=== PATIENT | male | born 1945 | race Caucasian/White ===

== ENCOUNTER 2025-05-29 11:12 | Outpatient (REF) | payer MEDICARE, SELFPAY ==
--- OUTSIDE RECORDS SUMMARY | 2025-05-29 15:06 | XMS_ITS ---
Author Name [facility] Organization Unknown Care Team Organization Name Specialty Phone Email Start Date End Da te [facility] 12/10/2022 02/20/2024 [facility] 05/11/2022 02/20/2024
[2025-05-29 17:48] LABS: MANUAL DIFF FLAG NO
[2025-05-29 18:05] LABS: NRBC Abs Auto 0.000 X10*3/uL (0.0-0.012); NRBC Pct Auto 0.0 /100WBC (0.0-0.2); SCAN SMEAR FLAG 1
[2025-05-29 18:07] LABS: Hematocrit 33.5 % (42.0-52.0); Hemoglobin 9.8 g/dl (14.0-18.0); Imm Gran Abs Auto 0.04 X10*3/uL (0.00-0.03); Imm Gran Pct Auto 0.5 % (0.0-0.4); Lymphocytes Absolute Auto 0.8 X10*3/uL (1.2-4.9); Mean Corpuscular HGB Conc 29.3 g/dl (31.0-36.0); Mean Corpuscular Hemoglobin 20.5 pg (27.0-33.0); Mean Corpuscular Volume 70.2 fL (80.0-98.0); Platelet Count 212 X10*3/uL (160-400); Red Blood Count 4.77 X10*6/uL (4.60-5.80); White Blood Count 7.6 X10*3/uL (4.8-10.8)
[2025-05-29 18:15] LABS: PLT ABN DIST 1
[2025-05-29 18:34] LABS: Alanine Aminotransferase 26 U/L (0-40); Albumin Level 4.4 g/dL (3.5-5.0); Alkaline Phosphatase 87 U/L (39-117); Anion Gap 12 (12-20); Aspartate Amino Transferase 32 U/L (5-37); Blood Urea Nitrogen 16 mg/dL (9-16); Calcium 9.7 mg/dL (8.4-10.2); Carbon Dioxide 27 mmol/L (22-29); Chloride 111 mmol/L (96-108); Estimated Glomerular Filt Rate 41; Potassium 4.8 mmol/L (3.3-5.1); Sodium 145 mmol/L (135-145); Total Protein 6.6 g/dL (6.5-8.0)
[2025-05-29 18:44] LABS: Erythrocyte Sedimentation Rate 14 MM/HR (0-15)
[2025-05-29 19:02] LABS: Folate 3.8 ng/mL (> or = 4.0); Vitamin B12 337 pg/mL (200-900)
== END 2025-05-29 11:13 | disposition home or self-care (01) ==
LOC: HO.HKASLDS 11:12
PROVIDERS: PCP Internal Medicine; Visit Provider Psychiatry & Neurology Neurology
DX: G31.84 Mild cognitive impairment of uncertain or unknown etiology (principal)
CPT/HCPCS: 36415; 80053; 82607; 82746; 83090; 84443; 85025; 85652; 99202

== ENCOUNTER 2025-05-29 11:12 | Outpatient (AMB) | payer MEDICARE, SELFPAY ==
--- NOTE | 2025-05-29 11:16 | A.OFFVIS_ITS ---
Vital Signs 05/29/25 11:19 Height 5 ft 4 in Weight 151 lb BMI 25.9 BP 118/76 Blood Pressure Location Rt brachial Position Sitting Pulse 64 Pulse Source Pulse Oximeter Pulse Oximetry (%) 97 Oxygen Delivery Method Room Air Intake Visit Reasons: INP - Mild Cognitive Impairment Intake Note: Mild cognitive impairment Professional Nursing Tutor Required: No Accompanied by: Spouse Allergies No Known Allergies Allergy (Verified 05/29/25 11:16) Medication List - Last Reconciled 05/29/25 by Erika Avila MD amlodipine (Norvasc) 5 mg PO DAILY atorvastatin (Lipitor) 20 mg PO BEDTIME bicalutamide (Casodex) 50 mg PO DAILY citalopram (Celexa) 10 mg PO DAILY donepezil (Aricept) 10 mg PO BEDTIME gabapentin (Neurontin) 300 mg PO BEDTIME leuprolide acetate (3 month) 22.5 mg IM [id number] tiotropium bromide 2.5 mcg/actuation (Spiriva Respimat) 2 puffs inhalation DAILY umeclidinium 62.5 mcg/actuation (Incruse Ellipta) 1 inh inhalation DAILY HPI Comments Details: 79y/o Right handed male comes for evaluation of cognitive impairment. He is accompanied by his . He reports short term recall issues for a few years now. He forgets conversations, appointments , repeats himself, has trouble finding words, forgets names , misplaces things at home he is good with medications He does not drive.He is not confident about his driving skills. No executive dysfunction his takes care of banking etc He has COPD and has 60 Pack years. 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 Social History Comment: no Patient Tobacco Use Status: Current everyday Tobacco user e-Cigarette/Vaping Use: Never Used Physical Exam Vital Signs: Last Vital Signs Pulse 64 05/29/25 11:19 BP 118/76 05/29/25 11:19 Pulse Ox 97 05/29/25 11:19 Oxygen Delivery Method Room Air 05/29/25 11:19 BMI result Body Mass Index 25.9 Const General: cooperative, healthy appearing, comfortable and no acute distress Nutritional Appearance: average body habitus Orientation/consciousness: patient oriented x3 Eyes Pupils: Equal, round and reactive pupils present Resp Effort & Inspection: able to speak in complete sentences Neuro General: patient oriented x3, gait normal, tone normal, moves all extremities and no focal motor deficits Cranial nerves: Yes Facial sensation intact/muscles of mastication intact, Yes Equal, round and reactive pupils present, Yes Bilaterally intact EOM present, Yes Nystagmus not present, Yes Normal facial strength present and Yes Midline tongue present Cognition (Neuro): normal cognition Gait exam (Neuro): Normal gait present Motor exam (neuro): 5/5 motor strength present throughout and Normal motor muscle tone present throughout Deep tendon reflexes (DTR's): Right triceps reflex intensity grade: 1+, Left triceps reflex intensity grade: 1+, Rt Biceps (C5, C6): 1+, Left biceps reflex intensity grade: 1+, Right brachioradialis reflex intensity grade: 1+, Left brachioradialis reflex intensity grade: 1+, Right patellar reflex intensity grade: 1+ and Left patellar reflex intensity grade: 1+ Coordination: [id number] test normal Orientation What is the (year) (season) (date) (day) (month)?: year, season, date, day and month Where are we (state) (county) (town or city) (hospital) (floor)?: state, county, town or city, hospital/clinic and floor Registration Name of 3 unrelated objects clearly and slowly, then ask patient to repeat all 3 of them. (1st repeat determines score. Make sure they can repeat all three): object 1, object 2 and object 3 Attention & Calculation (CHOOSE ONE) Spell WORLD backwards (DLROW): 3 letters Recall Ask patient to repeat the 3 items from question #3.: object 1, object 2 and object 3 Language Show patient a wristwatch & ask what it is. Repeat for pencil.: watch and pencil Ask the patient to repeat the phrase 'No ifs, ands, or buts' after you.: correct Ask the patient to 'take a piece of paper with their right hand' 'fold paper in half' 'place paper on floor': take paper in right hand and fold paper in half Score Score: 24 Assessment & Plan Assessment & Plan (1) Mild cognitive impairment: Comment: Likely vascular Code(s): G31.84 - Mild cognitive impairment of uncertain or unknown etiology Category: Medical Plan F/u Pulmonary to discuss supplemental O2 use MRI Brain to r/o structural causes Labs to r/o reversible causes CBC,CMP Vit B 12 TSH ESR TAMIKA Orders: Orders MR head/brain wo con Today G31.84 - Mild cognitive impairment of uncertain or unknown etiology Homocysteine Today G31.84 - Mild cognitive impairment of uncertain or unknown etiology Erythrocyte Sedimentation Rate Today G31.84 - Mild cognitive impairment of uncertain or unknown etiology Comprehensive Met. Panel Today G31.84 - Mild cognitive impairment of uncertain or unknown etiology Complete Blood Count Auto Diff Today G31.84 - Mild cognitive impairment of uncertain or unknown etiology TSH reflex Free T4 Today G31.84 - Mild cognitive impairment of uncertain or unknown etiology Vitamin B12 and Folate Today G31.84 - Mild cognitive impairment of uncertain or unknown etiology Coding Level of Care Code New Pt Level 4 (56857) Complex visit Add On G2211 Diagnoses Mild cognitive impairment G31.84
[2025-05-29 11:19] VITALS: BP 118/76; PULSE 64; O2SAT 97; BMI 25.9
--- OUTSIDE RECORDS SUMMARY | 2025-05-29 13:56 | XMS_ITS | Clinical Summary ---
Author Organization [facility] Address [address] [place] [address] Care Team Providers Care Sanitation Truck Cleaner Name Role Phone Don Lee MD Primary Care Provider [phone] Allergies No known active allergies Medications Medication Sig Dispensed Refills Start Date End Date Status donepezil (ARICEPT) 10 MG tablet Take 1 tablet (10 mg total) by mouth every night at bedtime. 0 Active guaiFENesin-codeine (ROBITUSSIN-AC) 100-10 MG/5ML syrup Take 5 mL by mouth 3 (three) times a day as needed for cough. 0 Active amLODIPine (NORVASC) tablet 5 mg Take 1 tablet (5 mg total) by mouth daily. 0 Active Melatonin 5 MG TABS Take by mouth every night at bedtime. 0 Active Cholecalciferol (Vitamin D) 50 MCG (2000 UT) CAPS Take by mouth daily. 0 Active albuterol 108 (90 Base) MCG/ACT inhaler Inhale 2 puffs into the lungs every 6 (six) hours as needed for wheezing. 0 Active atorvastatin (LIPITOR) tablet 20 mg Take 1 tablet (20 mg total) by mouth daily. 0 Active fluticasone-salmetero l 250-50 MCG/ACT AEPB Inhale into the lungs. 0 Active Tiotropium [place] Monohydrate 2.5 MCG/ACT AERS Inhale into the lungs. 0 Active leuprolide (Eligard) 22.5 MG KIT 3 Month injection Inject 22.5 mg under the skin every 3 (three) months. 0 Active citalopram (CeleXA) 10 MG tablet Take 1 tablet (10 mg total) by mouth daily. 0 Active bicalutamide (CASODEX) 50 MG tablet Take 1 tablet (50 mg total) by mouth daily 30 tablet 11 09/08/2023 Active gabapentin (NEURONTIN) 300 MG capsule TAKE 1 CAPSULE BY MOUTH ONCE DAILY AT NIGHT AT BEDTIME FOR HOT FLASHES 30 capsule 5 04/18/2024 Active Active Problems Problem Noted Date Diagnosed Date Prostate cancer 04/16/2023 Non-small cell cancer of left lung 04/16/2023 Family History Medical History Relation Name Comments Lymphoma Mother Relation Name Status Comments Father Mother Social History Tobacco Use Types Packs/Day Years Used Date Smoking Tobacco: Every Day Cigarettes 1 60 Smokeless Tobacco: Never Tobacco Cessation:Ready to Q uit: Not Asked; Counseling Given: Not Answered Alcohol Use Standard Drinks/Week Comments Not Currently 0 (1 standard drink = 0.6 oz pur e alcohol) Sex and Gender Information Value Date Recorded Sex Assigned at Not on file Gender Identity Not on file Sexual Orientation Not on file Job Start Date Occupation Industry Not on file Not on file Not on file Last Filed Vital Signs Vital Sign Reading Time Taken Comments Blood Pressure 127/49 03/09/2024 11:28 AM EDT Pulse 60 03/09/2024 11:28 AM EDT Temperature 36.3 C (97.4 F) 03/09/2024 11:28 AM EDT Respiratory Rate - - Oxygen Saturation 97% 03/09/2024 11:28 AM EDT Inhaled Oxygen Concentration - - Weight 68.9 kg (152 lb) 03/09/2024 11:28 AM EDT Height 162.6 cm (5' 4 ) 03/09/2024 11:28 AM EDT Body Mass Index 26.09 03/09/2024 11:28 AM EDT Plan of Treatment Health Maintenance Due Date Last Done Comments Hepatitis C Screening 1945 Lung Cancer Screening (Low Dose CT) 1945 Depression Screening 1957 Preventative Health Evaluation 1963 DTap / Tdap / Td (1 - Tdap) 1964 Shingrix-Zoster Vaccine (1 of 2) 1964 Fall Risk Assessment 2010 RSV Adult > 60+ Yrs or (1 - 1-dose 75+ series) 2020 COVID-19 Vaccine (3 - Pfizer risk series) 09/29/2020 09/01/2020, 08/11/2020 Influenza Vaccine (#1) 2025 3, 05/20/2022, 09/17/2021, Additional history exists Pneumococcal Vaccine Completed 04/18/2020, 12/02/2017, 05/13/2017, Additional history exists Hepatitis B Vaccines Aged Out No long er eligible based on patient's age to complete this topic RSV Ped < 20 months Aged Out No longe r eligible based on patient's age to complete this topic Care Teams Sanitation Truck Cleaner Relationship Specialty Start Date End Date oDn Lee MD [address] [place] [id number] PCP - General Internal Medicine 02/25/23
--- OUTSIDE RECORDS SUMMARY | 2025-05-29 13:57 | XMS_ITS | Clinical Summary ---
Author Organization [place] [address] [address] Formerly [facility], [facility] Building Address [address] [place] [phone] Phone Care Team Providers Care Adjunct Art History Instructor Name Role Phone Apple Greenfield MD Primary Care Provider [phone] Allergies No known active allergies Medications cholecalciferol (VITAMIN D-3) 50 mcg (2,000 unit) capsule Take by mouth daily. Active leuprolide (Eligard, 3 month,) 22.5 mg syringe Inject 22.5 mg under the skin every 3 (three) months. Active gabapentin (NEURONTIN) 300 mg capsule Take 1 capsule (300 mg total) by mouth at bedtime. 90 capsule 3 5 Active bicalutamide (CASODEX) 50 mg tablet Take 1 tablet (50 mg total) by mouth 1 (one) time each day Take at the same time every day. 90 tablet 3 5 Active Incruse Ellipta 62.5 mcg/actuation inhalation Inhale 1 puff by mouth 1 (one) time each day. 5 Active citalopram (CeleXA) 20 mg tablet Take 1 tablet (20 mg total) by mouth 1 (one) time each day. 30 tablet 11 5 01/09/20 26 Active donepeziL (ARICEPT) 10 mg tablet TAKE 1 TABLET BY MOUTH AT BEDTIME 90 tablet 1 5 Active atorvastatin (LIPITOR) 20 mg tablet Take 1 tablet by mouth once daily 90 tablet 1 5 Active amLODIPine (NORVASC) 5 mg tablet Take 1 tablet by mouth once daily 90 tablet 1 5 Active fluticasone-mando meterol (ADVAIR DISKUS) 250-50 mcg/dose diskus inhaler Inhale 1 puff by mouth 2 (two) times a day. Rinse mouth with water after use to reduce aftertaste and incidence of candidiasis. Do not swallow. 3 each 5 Active fluticasone-ume clidinium-vilan terol (Trelegy Ellipta) 200-62.5-25 mcg inhaler Inhale 1 puff (200 mcg total) by mouth 1 (one) time each day. Rinse mouth with water after use to reduce aftertaste and incidence of candidiasis. Do not swallow. 1 each 5 03/20/20 26 Active Active Problems Problem Noted Date Diagnosed Date Bilateral hearing loss 08/21/2024 Overview (08/21/2024): Aug 02, 2024 Entered By: AYUSH [place] Comment: hearing aids Current smoker 08/21/2024 Overview (08/21/2024): Aug 02, 2024 Entered By: AYUSH [place] Comment: 1ppd since age 10 Type 2 diabetes mellitus wit hout complications ([facility] V24, [facility] V28) 08/21/2024 Unspecified abnormalities of gait and mobility 0 08/21/2024 Malignant neoplasm of prostate ([facility] V24, [facility] V28) 04/16/2023 Non-small cell cancer of lef t lung ([facility] V24, [facility] V28) 12/08/2022 Assessment & Plan (12/27/2024 12:58 PM EDT): Preferred home care has been placed for PT, OT, to prevent fall risk. He will continue follow-up with his oncologist. Orders: Ambulatory referral to Home Health; Future Assessment & Plan (08/24/2024 2:36 PM EST): He has upcoming appointment scheduled with his radiation oncologist and oncologist. Primary cancer of left upper lobe of lung ([facility] V24, [facility] V28) 12/02/2022 Overview (08/21/2024): Last Assessment & Plan: 77-year-old male current smoker with a small but now confirmed clinical stage I lung cancer with quite poor pulmonary function testing. He tolerated his procedure quite well and I went over the new diagnosis of non-small cell lung cancer from the navigational bronchoscopy with biopsy. We also went over his pulmonary function testing which are quite poor and with a small intraparenchymal nodule we discussed the options of radiation probably stereotactic versus surgery which would require a lobectomy and a VQ scan prior. He does continue to smoke and I did advise that surgery would be quite risky in him even with a favorable VQ scan as his FEV1 is less than 40% already. His and him tell me that he has an appointment with radiation oncology on December 14 which I think he should keep and probably proceed with stereotactic radiation if that is what they recommend. All questions were answered. Depressed mood 05/20/2022 Assessment & Plan (08/24/2024 2:36 PM EST): Continue citalopram 10 mg daily for now. Pulmonary nodule 04/26/2022 Overview (08/21/2024): Per OV notes with Dr. Cao on 04/26/22: patient has a slowly enlarging spiculated nodule measuring 9 mm in the left upper lobe. This is a presumed clinical stage I lung cancer until proven otherwise...Options we discussed were for continued observation which at this point would be a 6-month follow-up CT scan of the chest versus a navigational bronchoscopy with biopsy. I discussed the risks and benefits of each of these options in detail which he seemed to understand quite well. Last Assessment & Plan: Patient is a 77-year-old male longtime and current smoker part of the lung cancer screening program was a slowly enlarging spiculated nodule measuring 10 mm in the left upper lobe. This is a presumed clinical stage I lung cancer until proven otherwise. We discussed the diagnosis, staging and treatment of lung cancer which she seemed to understand. Options we discussed were for continued observation which at this point would be increasing to 12-month intervals versus a navigational bronchoscopy with biopsy to be performed by thoracic surgeon Dr. Amy Cao. We discussed the risks and benefits of navigational bronchoscopy which include postprocedural hemoptysis as well as hematoma or pneumothorax which would require hospitalization. Patient is not a surgical candidate as he also has significant COPD with FEV1 of less than 40%. Patient would like to move forward with a navigational bronchoscopy and biopsy. Syncope 10/03/2020 Mild cognitive impairment 04/18/2020 Overview (08/21/2024): Aug 02, 2024 Entered By: AYUSH [place] Comment: poor STM Assessment & Plan (12/27/2024 12:58 PM EDT): I have placed referral to neurology for further evaluation of his cognitive impairment. Orders: Ambulatory referral to Neurology; Future Ectatic abdominal aorta ([facility] V24) 10/30/2019 Overview (08/21/2024): CT abdomen (10/2019) done at [facility] visit and was found to have a 2.8 cm ectatic abdominal aorta. Stress incontinence 04/03/2019 Hemorrhoid 04/25/2018 Asthma 05/13/2017 Thal trait 05/13/2017 Cataract 12/27/2016 CKD (chronic kidney disease) stage 3, GFR 30-59 ml/min ([facility]/HCC V24, [facility]/HCC V28) 12/27/2016 Chronic obstructive pulmonar y disease, unspecified ([facility] V24, [facility] V28) 12/27/2016 Overview (08/21/2024): Aug 02, 2024 Entered By: AYUSH [place] Comment: advanced disease Aug 02, 2024 Entered By: AYUSH [place] Comment: O2 PRN Assessment & Plan (12/27/2024 12:58 PM EDT): Continue Incruse Ellipta, Spiriva. Referral to pulmonology placed. Strongly advised him to quit smoking but he does not want to. Orders: Ambulatory referral to Pulmonology; Future Ambulatory referral to Home Health; Future Assessment & Plan (08/24/2024 2:36 PM EST): Continue carvedilol Advair, Incruse Ellipta, albuterol until he runs out of the Incruse Ellipta. After that he will be switched to Spiriva instead of the i Incruse Ellipta. Diverticulosis 12/27/2016 Eczema 12/27/2016 Hepatic cyst 12/27/2016 HTN (hypertension) 12/27/2016 Assessment & Plan (12/27/2024 12:58 PM EDT): Follow low-sodium diet. Continue amlodipine. Blood pressure okay. Assessment & Plan (08/24/2024 2:36 PM EST): Follow low-sodium diet. Blood pressure is okay. Continue amlodipine. Hyperlipidemia 12/27/2016 Assessment & Plan (12/27/2024 12:58 PM EDT): Follow low cholesterol diet. Continue atorvastatin. Will check lipid panel. Orders: Lipid panel with reflex to direct LDL; Future Assessment & Plan (08/24/2024 2:36 PM EST): Follow low-cholesterol diet. Continue atorvastatin. His LFTs are normal. Lipid panel showed elevated triglycerides. Advised him to take paeg-[id number] omega-3 once a day with lunch. Iron deficiency anemia 12/27/2016 Prediabetes 12/27/2016 Overview (08/21/2024): HGBA1C 6.3 on 09/06/2016 Assessment & Plan (12/27/2024 12:58 PM EDT): We will monitor A1c levels. Is now been in the prediabetic range. Diabetic diet discussed. Orders: Hemoglobin A1c; Future Assessment & Plan (08/24/2024 2:36 PM EST): Diabetic diet discussed. 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 Encounters Date Type Department Care Team Description 05/22/2025 4:00 PM EST Office Visit Nephrology [facility] [address] [place] [phone] Taqueria Ndiaye MD Stage 3b chronic kidney disease ([facility]/HCC V24, CMS/HCC V28) (Primary Dx); Hypertension, unspecified type 04/11/2025 11:30 AM EDT Office Visit [facility] Hematology Oncology [address] [place] [phone] Ashok Dailey MD Non-small cell cancer of left lung (CMS/HCC V24, CMS/HCC V28) (Primary Dx); Primary cancer of left upper lobe of lung (CMS/HCC V24, CMS/HCC V28); Malignant neoplasm of prostate (CMS/HCC V24, CMS/HCC V28) 03/20/2025 11:30 AM EDT Office Visit Pulmonology [facility] [address] [facility] [address] [place] [phone] Joe Fang MD Malignant neoplasm of lung, unspecified laterality, unspecified part of lung (CMS/HCC V24, CMS/HCC V28) (Primary Dx); Chronic obstructive pulmonary disease, unspecified COPD type (CMS/HCC V24, CMS/HCC V28); Tobacco abuse from Last 3 Months Surgical History Surgery Date Site/Laterality Comments PROSTATE SURGERY PROCEDURE:PROSTATE SURGERY PROSTATE SURGERY PROCEDURE: HISTORICAL PROSTATE SURGERY; COMMENT: prostate ca OTHER SURGICAL HISTORY removed small lump on back of neck, benign VASECTOMY Medical History Medical History Date Comments Prostate cancer ([facility]/HCC V24 , [facility]/HCC V28) DX:Prostate cancer (HCC) Lung cancer (CMS/HCC V24, [facility]/HCC V28) DX:Lung cancer (HCC) Hypertension DX:Hypertension Anemia DX:Anemia Psoriasis DX:Psoriasis CKD (chronic kidney disease) DX: CKD (chronic kidney disease) COPD (chronic obstructive pu lmonary disease) (CMS/HCC V24, CMS/HCC V28) DX:COPD (chronic o bstructive pulmonary disease) (HCC) Prediabetes 12/27/2016 DX:Prediabetes; COMMENT: HGBA1C 6.3 on 09/06/2016 CKD (chronic kidney disease) stage 3, GFR 30-59 ml/min (CMS/HCC V24, CMS/HCC V28) 12/27/2016 DX:CKD (chronic kidney disea se) stage 3, GFR 30-59 ml/min ([facility]) Cataract 12/27/2016 DX:Cataract Diverticulosis 12/27/2016 DX:Diverticulosi s Eczema 12/27/2016 DX:Eczema COPD with chronic bronchitis and emphysema ([facility] V24, [facility] V28) 12/27/2016 DX:COPD with management recruiter master bronchitis and emphysema (HCC) History of prostate cancer 12/27/2016 DX:Hi story of prostate cancer; COMMENT: Urology follows Hepatic cyst 12/27/2016 DX:Hepatic cyst HTN (hypertension) 12/27/2016 DX:HTN (hyper tension) 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 DX:Scrotal varic es Hemorrhoid 04/25/2018 DX:Hemorrhoid Asthma 05/13/2017 DX:Asthma Hyperlipidemia 12/27/2016 DX:Hyperlipidemi a Iron deficiency anemia 12/27/2016 DX:Iron d eficiency anemia Memory loss 09/22/2017 DX:Memory loss Thal trait 05/13/2017 DX:Thal trait Depressed mood 05/20/2022 DX:Depressed moo d Non-small cell cancer of lef t lung ([facility] V24, [facility] V28) 12/08/2022 DX:Non-small cell cancer of left lung (HCC) Prostate cancer ([facility] V24 , [facility] V28) 02/24/2023 DX:Prostate cancer (HCC) Family History Medical History Relation Name Comments Cancer Brother unsure of type No Known Problems Daughter Lymphoma Mother No Known Problems Sister No Known Problems Son Relation Name Status Comments Brother Daughter Alive Father Mother Sister Alive Son Alive x3 Social History Tobacco Use Types Packs/Day Years Used Date Smoking Tobacco: Every Day Cigarettes Smokeless Tobacco: Never Tobacco Cessation:Ready to Q uit: Not Asked; Counseling Given: Not Answered Comments:Smoking 1 pk daily Alcohol Use Standard Drinks/Week Comments No 0 (1 standard drink = 0.6 oz pur e alcohol) Housing Instability Answer Date Recorde d Are you worried that in the next 2 months you may not have stable housing? No 02/14/2025 Food Access & Nutrition Answer Date Rec orded Do you have access to a vari ety of food including fruits and vegetables? Yes 02/14/2025 Health Literacy Answer Date Recorded How often do you need to hav e someone help you when you read instructions, pamphlets, or other written material from your doctor or pharmacy? Never 02/14/2025 Caregiver: How often do you need to have someone help you when you read instructions, pamphlets, or other written material from your doctor or pharmacy? Not on file 02/14/2025 Financial Risk Answer Date Recorded How hard is it for you to pa y for the very basics like food, housing, medical care, and air conditioning / heating? Somewhat hard 02/14/2025 Transportation Answer Date Recorded Has the lack of transportati on kept you from meetings, work, or from getting things needed for daily living? No Has the lack of transportati on kept you from medical appointments or from getting medications? No 02/14/2025 Social Isolation Answer Date Recorded How often do you feel lonely or isolated from th ose around you? Never 02/14/2025 Food Risk Answer Date Recorded Within the past 12 months we worried whether our food would run out before we got money to buy more. Sometimes true 025 Within the past 12 months th e food we bought just didn't last and we didn't have money to get more. Sometimes true 02/14/2025 Dependent Care Answer Date Recorded Do you need help finding or paying for care for your loved ones. For example, child and family therapist or elderly care for an older adult? No 02/14/2025 Education Answer Date Recorded Do you think completing more education or training, like finishing a GED, going to college, or learning a trade, would be helpful for you? No 02/14/2025 Employment and Income Answer Date Recor ded During the last four weeks, have you been actively looking for work? No 02/14/2025 Living Situation Answer Date Recorded What is your living situation? Unrecognized valu e 02/14/2025 Sex and Gender Information Value Date Recorded Sex Assigned at Male 05/15/2025 12:59 PM EST Legal Sex Male 4:20 AM EST Gender Identity Male 05/15/2025 12:59 PM EST Sexual Orientation Not on file Obstetrics History Last Filed Vital Signs Vital Sign Reading Time Taken Comments Blood Pressure 118/57 05/22/2025 3:50 PM EST Pulse 61 05/22/2025 3:50 PM EST Temperature 36.4 C (97.6 F) 04/11/2025 11:17 AM EDT Respiratory Rate 20 03/20/2025 11:40 AM EDT Oxygen Saturation 96% 04/11/2025 11:17 AM EDT Inhaled Oxygen Concentration - - Weight 68.6 kg (151 lb 3.2 oz) 05/22/2025 3:50 P M EST Height 162.6 cm (5' 4 ) 03/20/2025 11:40 AM EDT Body Mass Index 25.95 03/20/2025 11:40 AM EDT Plan of Treatment Upcoming Encounters Date Type Department Care Team (Late st Contact Info) Description 07/02/2025 10:30 AM EST Office Visit Internal Medicine - [address] [phone] Rekha Jennings NP [address] [place] [phone] 11:30 AM EST Appointment [facility] CT Scan [address] [place] [phone] 07/12/2025 11:30 AM EST Office Visit [facility] Hematology Oncology [address] [place] [phone] Ashok Dailey MD [address] [place] [phone] 07/24/2025 1:00 PM EST Appointment [facility] Radiation Oncology [address] [place] [phone] Jessica Godoy NP [address] [place] [address] 09/23/2025 1:15 PM EDT Office Visit Pulmonology - [place] [address] [facility] [address] [place] [phone] Joe Fang MD [address] [place] [phone] 10/22/2025 2:30 PM EDT Office Visit Internal Medicine - [address], [place] [phone] Apple Greenfield MD [address] [place], [place] 10/30/2025 1:30 PM EDT Office Visit Nephrology [place] [id number] [place] [phone] Taqueria Ndiaye MD [address] [place] [phone] Health Maintenance Due Date Last Done Comments Diabetes: Annual Foot Exam 1955 Diabetes: Annual Retina Eye Exam 1955 DTaP,Tdap,and Td Vaccines (1 - Tdap) 1964 Zoster Vaccines (1 of 2) 1964 Hepatitis C Screening 06/12/2022 Lung Cancer Screening (Low Dose CT) 01/05/2023 01/05/2022, 12/30/2020 Diabetes: Annual Urine Albumin-Creatinine Ratio (uACR) 04/11/2024 COVID-19 Vaccine ( season) 2025 08/02/2024, 09/01/2020, 08/11/2020 Influenza Vaccine (#1) 2025 , 07/04/2023, 03/25/2023, Additional history exists Diabetes: Blood Sugar Control Test (HGBA1C) 06/29/2025 12/28/2024, 05/08/2024, 12/21/2023 Falls Risk Assessment 02/14/2026 02/14/2025 Medicare Annual Wellness Visit 02/14/2026 02/14/2025 Social Influencers of Health Screening 02/14/2026 02/14/2025 Diabetes: Annual GFR (Glomerular Filtration Rate) 04/08/2026 04/08/2025, 03/19/2025 Hypertension/CHF/CAD Annual BMP Blood Test 04/08/2026 04/08/2025, 03/19/2025 Cholesterol Screening (Lipid Panel) 12/28/2029 12/28/2024, 05/08/2024 Pneumococcal Vaccine: 50+ Years Completed 04/18/2020, 12/02/2017, 05/13/2017, Additional history exists RSV Immunization Adult Patients Completed 08/02/2024 Depression Screening Completed 02/14/2025 HIB Vaccines Aged Out No longer eligi ble based on patient's age to complete this topic HPV Vaccines Aged Out No longer eligi ble based on patient's age to complete this topic Hepatitis A Vaccines Aged Out No long er eligible based on patient's age to complete this topic Hepatitis B Vaccines Aged Out No long er eligible based on patient's age to complete this topic IPV Vaccines Aged Out No longer eligi ble based on patient's age to complete this topic MMR Vaccines Aged Out No longer eligi ble based on patient's age to complete this topic Meningococcal ACWY Vaccine Aged Out N o longer eligible based on patient's age to complete this topic Meningococcal B Vaccine Aged Out No l onger eligible based on patient's age to complete this topic RSV Immunization Patients Under 20 months Aged Out No longer eligible based on patient's age to complete this topic Varicella Vaccines Aged Out No longer eligible based on patient's age to complete this topic Procedures Procedure Name Priority Date/Time Associated Diagnosis Comments CBC WITH AUTO DIFFERENTIAL Routine 04/08/2025 12:00 PM EDT Malignant neoplasm of prostate ([facility] V24, [facility] V28) PROSTATE SPECIFIC ANTIGEN DIAGNOSTIC Routine 04/08/2025 12:00 PM EDT Malignant neoplasm of prostate ([facility] V24, [facility]/HCC V28) COMPREHENSIVE METABOLIC PANEL Routine 04/08/2025 12:00 PM EDT Malignant neoplasm of prostate ([facility] V24, CMS/HCC V28) CBC AND DIFFERENTIAL Routine 04/08/2025 12:00 PM EDT Malignant neoplasm of prostate ([facility]/HCC V24, [facility]/HCC V28) BUN Routine 03/19/2025 1:45 PM EDT Stage 3a chronic kidney disease (CMS/HCC V24, CMS/HCC V28) Hypertension, unspecified type ELECTROLYTE PANEL Routine 03/19/2025 1:4 5 PM EDT Stage 3a chronic kidney disease (CMS/HCC V24, CMS/HCC V28) Hypertension, unspecified type PROTEIN AND CREATININE WITH RATIO, URINE Routine 03/19/2025 1:45 PM EDT Stage 3a chronic kidney disease (CMS/HCC V24, CMS/HCC V28) Hypertension, unspecified type CREATININE, SERUM Routine 03/19/2025 1:4 5 PM EDT Stage 3a chronic kidney disease (CMS/HCC V24, CMS/HCC V28) Hypertension, unspecified type HEMOGLOBIN A1C Routine 12/28/2024 11:06 AM EDT Prediabetes LIPID PANEL WITH REFLEX TO DIRECT LDL Routine 12/28/2024 11:06 AM EDT Hyperlipidemia, unspecified hyperlipidemia type CT LUNG SCREENING LOW DOSE Routine 01/05/2022 4:25 PM EDT Personal history of nicotine dependence from Last 3 Months or Most Recently Relevant to Health Maintenance Results * Prostate specific antigen diagnostic (04/08/2025 12:00 PM EDT) PSA <0.06 0.00 - 4.00 ng/mL LAB CHEMISTRY METHOD 04/08/2025 3:19 PM EDT [facility] Blood Venous blood specimen / Unknown Venipuncture / Unknown 04/08/2025 12:00 PM EDT 04/08/2025 1:33 PM EDT Narrative [facility] - 04/08/2025 3:19 PM EDT The Siemens Advia Centaur Chemiluminescent Immunoassay is used. Results obtained with different assay methods or kits cannot be used interchangeably. Results cannot be interpreted as absolute evidence of the presence or absence of malignant disease. us Ashok Dailey MD LAB BLOOD ORDERABLES Final Result [facility] [address] [place] [address], * (ABNORMAL) CBC auto differential (04/08/2025 12:00 PM EDT) [facility] WBC 7.0 4.8 - 10.8 K/mcL LAB HEMETOLOGY METHOD 04/08/2025 1:40 PM EDT [facility] RBC 4.40(L) 4.50 - 5.50 M/mcL LAB HEMETOLOGY METHOD 04/08/2025 1:40 PM EDT [facility] Hemoglobin 8.9(L) 13.5 - 17.5 g/dL LAB HEMETOLOGY METHOD [facility]/08[facility]2025 [facility] Hematocrit 30.1(L) 42.0 - 54.0 % LAB HEMETOLOGY METHOD 04/08/2025 1:40 PM [facility] MCV 68.7(L) 79.0 - 98.0 FL LAB HEMETOLOGY METHOD 04/08/2025 1:40 PM [facility] MCH 20.3(L) 27.0 - 32.0 pcg LAB HEMETOLOGY METHOD 04/08/2025 1:40 PM [facility] MCHC 29.6(L) 32.0 - 37.0 g/dL LAB HEMETOLOGY METHOD 04/08/2025 1:40 [facility] RDW 15.7(H) 11.0 - 15.0 % LAB HEMETOLOGY METHOD 04/08/2025 1:40 PM EDT [facility] Platelets 297 130 - 400 K/mcL LAB HEMETOLOGY METHOD 04/08/2025 1:40 PM [facility] MPV 10.7 7.0 - 11.0 FL LAB HEMETOLOGY METHOD 04/08/2025 1:40 PM [facility] NRBC 0.3 <1.0 % LAB HEMETOLOGY METHOD 04/08/2025 1:40 PM EDT [facility] NRBC Absolute 0.02 <0.10 K/mcL LAB HEMETOLOGY METHOD 04/08/2025 1:40 PM EDT [facility] Neutrophils Relative 67.8 % LAB HEMETOLOGY METHOD 04/08/2025 1:40 PM EDT [facility] Lymphocytes Relative 19.2 % LAB HEMETOLOGY METHOD 04/08/2025 1:40 PM EDT [facility] Monocytes Relative 8.0 % LAB HEMETOLOGY METHOD 04/08/2025 1:40 PM EDT [facility] Eosinophils Relative 3.9 % LAB HEMETOLOGY METHOD 04/08/2025 1:40 [facility] Basophils Relative 0.7 % LAB HEMETOLOGY METHOD 04/08/2025 1:40 PM [facility] Immature Granulocytes Relative 0.4 % LAB HEMETOLOGY METHOD 04/08/2025 1:40 PM [facility] Neutrophils Absolute 4.73 1.50 - 7.00 K/mcL LAB HEMETOLOGY METHOD 04/08/2025 1:40 PM [facility] Lymphocytes Absolute 1.34 1.00 - 5.00 K/mcL LAB HEMETOLOGY METHOD 04/08/2025 1:40 [facility] Monocytes Absolute 0.56 0.20 - 1.00 K/mcL LAB HEMETOLOGY METHOD 04/08/2025 1:40 PM EDT [facility] Eosinophils Absolute 0.27 0.00 - 0.50 K/mcL LAB HEMETOLOGY METHOD 04/08/2025 1:40 [facility] Basophils Absolute 0.05 0.00 - 0.20 K/mcL LAB HEMETOLOGY METHOD 04/08/2025 1:40 PM EDT [facility] Immature Granulocytes Absolute 0.03 0.00 - 0.03 K/mcL LAB HEMETOLOGY METHOD 04/08/2025 1:40 PM EDT [facility] Blood Venous blood specimen / Unknown Venipuncture / Unknown 04/08/2025 12:00 PM EDT 04/08/2025 1:32 PM EDT Ashok Dailey MD LAB BLOOD ORDERABLES Final Result [facility] [address] [place] [address], [place] [phone] * (ABNORMAL) Comprehensive metabolic panel (04/08/2025 12:00 PM EDT) Sodium 141 133 - 145 mmol/L LAB CHEMISTRY METHOD 04/08/2025 2:25 PM [facility] Potassium 4.2 3.5 - 5.5 mmol/L LAB CHEMISTRY METHOD 04/08/2025 2:25 PM [facility] Chloride 108 96 - 110 mmol/L LAB CHEMISTRY METHOD 04/08/2025 2:25 PM [facility] CO2 23 21 - 32 mmol/L LAB CHEMISTRY METHOD 04/08/2025 2:25 PM [facility] Anion Gap 10 3 - 11 LAB CHEMISTRY METHOD 04/08/2025 2:25 PM [facility] Glucose 136(H) 70 - 100 mg/dL LAB CHEMISTRY METHOD 04/08/2025 2:25 PM [facility] BUN 16 5 - 25 mg/dL LAB CHEMISTRY METHOD 04/08/2025 2:25 PM [facility] Creatinine 1.69(H) 0.70 - 1.30 mg/dL LAB CHEMISTRY METHOD 04/08/2025 2:25 PM [facility] eGFR 41(L) >=60 mL/min/1. 73m2 LAB CHEMISTRY METHOD 04/08/2025 2:25 PM EDT [facility] Comment:Calculation based on the Chronic Kidney Disease Epidemiology Collaboration (CKD-EPI) equation refit without adjustment for race. BUN/Creatinine Ratio 9.5 LAB CHEMISTRY METHOD 04/08/2025 2:25 PM EDT [facility] Calcium 9.2 8.5 - 10.5 mg/dL LAB CHEMISTRY METHOD 04/08/2025 2:25 PM T [facility] AST (SGOT) 20 10 - 42 unit/L LAB CHEMISTRY METHOD 04/08/2025 2:25 PM [facility] ALT (SGPT) 25 10 - 60 unit/L LAB CHEMISTRY METHOD 04/08/2025 2:25 PM [facility] Alkaline Phosphatase 84 42 - 121 unit/L LAB CHEMISTRY METHOD 04/08/2025 2:25 PM [facility] Total Protein 6.1 6.0 - 8.0 g/dL LAB CHEMISTRY METHOD 04/08/2025 2:25 PM T [facility] Albumin 3.8 3.2 - 5.0 g/dL LAB CHEMISTRY METHOD 04/08/2025 2:25 PM [facility] Total Bilirubin 0.6 0.0 - 1.4 mg/dL LAB CHEMISTRY METHOD 04/08/2025 2:25 PM [facility] Blood Venous blood specimen / Unknown Venipuncture / Unknown 04/08/2025 12:00 PM EDT 04/08/2025 1:33 PM EDT us Ashok Dailey MD LAB BLOOD ORDERABLES Final Result [facility] [address] [place] [address], * Protein and creatinine with ratio, urine (03/19/2025 1:45 PM EDT) Protein, Urine 52 mg/dL LAB CHEMISTRY METHOD 03/19/2025 5:08 PM EDT [facility] Prot/Creat, Ur 0.18 <=0.20 mg/mg creat LAB CHEMISTRY METHOD 03/19/2025 5:08 PM EDT [facility] Creatinine, Urine 294.0 mg/dL LAB CHEMISTRY METHOD 03/19/2025 5:08 PM EDT [facility] Urine Urine specimen obtained by clean catch procedure / Unknown Non-blood Collection / Unknown 03/19/2025 1:45 PM EDT 03/19/2025 1:45 PM EDT us Taqueria Ndiaye MD LAB URINE ORDERABLES Final Resu lt Performing Organization Address [facility]/ZIP Co de Phone Number [facility] [address] [place] [address], * (ABNORMAL) Creatinine (03/19/2025 1:45 PM EDT) Pathologist [facility] Creatinine 1.61(H) 0.70 - 1.30 mg/dL LAB CHEMISTRY METHOD 03/19/2025 4:32 PM EDT [facility] eGFR 43(L) >=60 mL/min/1. 73m2 LAB CHEMISTRY METHOD 03/19/2025 4:32 PM EDT [facility] Comment:Calculation based on the Chronic Kidney Disease Epidemiology Collaboration (CKD-EPI) equation refit without adjustment for race. Blood Venous blood specimen / Unknown Venipuncture / Unknown 03/19/2025 1:45 PM EDT 03/19/2025 1:45 PM EDT us Taqueria Ndiaye MD LAB BLOOD ORDERABLES Final Resu lt Performing Organization Address City/[facility]/ZIP Co de Phone Number [facility] [address] [place] [address], * BUN (03/19/2025 1:45 PM EDT) BUN 18 5 - 25 mg/dL LAB CHEMISTRY METHOD 03/19/2025 4:32 PM EDT [facility] Blood Venous blood specimen / Unknown Venipuncture / Unknown 03/19/2025 1:45 PM EDT 03/19/2025 1:45 PM EDT us Taqueria Ndiaye MD LAB BLOOD ORDERABLES Final Resu lt [facility] [address] [place] [address], [place] [phone] * Electrolyte panel (03/19/2025 1:45 PM EDT) Sodium 141 133 - 145 mmol/L LAB CHEMISTRY METHOD 03/19/2025 4:32 PM EDT [facility] Potassium 4.5 3.5 - 5.5 mmol/L LAB CHEMISTRY METHOD 03/19/2025 4:32 PM EDT [facility] Chloride 107 96 - 110 mmol/L LAB CHEMISTRY METHOD 03/19/2025 4:32 PM EDT [facility] CO2 30 21 - 32 mmol/L LAB CHEMISTRY METHOD 03/19/2025 4:32 PM EDT [facility] Anion Gap 4 3 - 11 LAB CHEMISTRY METHOD 03/19/2025 4:32 PM EDT [facility] Blood Venous blood specimen / Unknown Venipuncture / Unknown 03/19/2025 1:45 PM EDT 03/19/2025 1:45 PM EDT us Taqueria Ndiaye MD LAB BLOOD ORDERABLES Final Resu lt [facility] [address] [place] [address], [place] [phone] * Lipid panel with reflex to direct LDL (12/28/2024 11:06 AM EDT) Cholesterol 102 0 - 200 mg/dL LAB CHEMISTRY METHOD 12/28/2024 4:29 PM EDT [facility] Triglycerides 71 0 - 150 mg/dL LAB CHEMISTRY METHOD 12/28/2024 4:29 PM EDT [facility] HDL 42 >=40 mg/dL LAB CHEMISTRY METHOD 12/28/2024 4:29 PM EDT [facility] LDL Calculated 46 0 - 100 mg/dL LAB CHEMISTRY METHOD 12/28/2024 4:29 PM EDT [facility] VLDL Cholesterol Adalid 14.2 mg/dL LAB CHEMISTRY METHOD 12/28/2024 4:29 PM EDT [facility] Non HDL Chol. (LDL+VLDL) 60 <145 mg/dL LAB CHEMISTRY METHOD 12/28/2024 4:29 PM EDT [facility] Chol/HDL Ratio 2.4 0.0 - 4.4 LAB CHEMISTRY METHOD 12/28/2024 4:29 PM T [facility] Blood Venous blood specimen / Unknown Venipuncture / Unknown 12/28/2024 11:06 AM EDT 12/28/2024 11:06 AM EDT us Don Lee MD LAB BLOOD ORDERABLES Akila l Result [facility] [address] [place] [address], * Hemoglobin A1c (12/28/2024 11:06 AM EDT) Hemoglobin A1C 5.6 <6.5 % LAB CHEMISTRY METHOD 12/28/2024 10:27 PM EDT [facility] Mean Bld Glu Estim. 114 mg/dL LAB CHEMISTRY METHOD 12/28/2024 10:27 PM EDT [facility] Blood Venous blood specimen / Unknown Venipuncture / Unknown 12/28/2024 11:06 AM EDT 12/28/2024 11:06 AM EDT Don Lee MD LAB BLOOD ORDERABLES Akila chad Result [facility] [address] [place] [address], * CT LUNG SCREENING LOW DOSE (01/05/2022 4:25 PM EDT) Anatomical Region Laterality Modality Computed Tomogra phy 01/05/2022 11:1 9 AM EDT Narrative 01/05/2022 4:25 PM EDT [facility] Diagnostic Imaging Department [address] [place] [address] Patient: PRICILLATJ/Age/Sex: 1945 - 76 - M Unit#: [id number] Location/Status: SPDICATLS/REG CLI Mnemonic/Ordering Site: [facility] Ordering Physician: AMY CAO MD CT Lung Screening Low Dose - 01/05/221124 HISTORY: Current smoker, 63 pack year total. COMMENTS: Noncontrast Chest CT examination includes axial imaging from the lung apices through the hemidiaphragms supplemented with coronal and sagittal reformatted images utilizing low-dose screening technique (GE, 171.59 DLP (mGy-cm), CT utilizing dose reduction technique with automated exposure control based on patient size or use of iterative reconstruction technique). Direct comparison to noncontrast Chest CT examination: 01/05/2017 Direct comparison to low-dose screening Chest CT examinations: 12/26/2018, 12/28/2019, 12/30/2020 Cardiac size within normal limits. Three-vessel coronary artery calcification. Thoracic aorta atherosclerotic calcification without aneurysm. No gross thoracic lymphadenopathy by noncontrast CT analysis. No pericardial effusion, pleural effusion, pneumothorax. Endotracheal mucoid debris and scattered bilateral peribronchial thickening. Emphysematous disease. Scattered pulmonary parenchymal scarring without focal alveolar consolidation. A few scattered bilateral less than 5 mm pulmonary nodules appears similar to the prior examinations. Up to approximately 6 mm left upper lobe perivascular noncalcified solid nodule without spiculated morphology suggested on (series 4 image 74) as compared to approximately well-defined 4 mm solid nodule in 2017. 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 IMPRESSION: Emphysematous disease with indeterminate left upper lobe perivascular nodule (neoplasia to be excluded) by low-dose screening CT analysis when compared to [id number]. Please see the above report for further details. [id number] [facility] Lung RADS: Category 4A Dictating Physician: HODAN VU DO Electronically Signed by: HODAN VU DO Dic Date/Time: 01/05/22 1611 Sign date/Time: 01/05/22 1625 Procedure Note Hodan Vu, - 06/23/2022 [facility] Diagnostic Imaging Department [address] [place] [address] Patient: MYLESTJ Lee./Age/Sex: 1945 - 76 - M Unit#: [id number] [facility] Mnemonic/Ordering Site: [facility] Ordering Physician: AMY CAO MD CT Lung Screening Low Dose - 01/05/22 - 1125 HISTORY: Current smoker, 63 pack year total. COMMENTS: Noncontrast Chest CT examination includes axial imaging from the lungapices through the hemidiaphragms supplemented with coronal and sagittalreformatted images utilizing low-dose screening technique (Oligasis, 171.59 DLP (mGy-cm),CT utilizing dose reduction technique with automated exposure control basedon patient size or use of iterative reconstruction technique). Direct comparison to noncontrast Chest CT examination: 01/05/2017 Direct comparison to low-dose screening Chest CT examinations:12/26/2018, 12/28/2019, 12/30/2020 Cardiac size within normal limits. Three-vessel coronary arterycalcification. Thoracic aorta atherosclerotic calcification without aneurysm. No gross thoracic lymphadenopathy by noncontrast CT analysis. No pericardial effusion, pleural effusion, pneumothorax. Endotracheal mucoid debris and scattered bilateral peribronchialthickening. Emphysematous disease. Scattered pulmonary parenchymal scarring without focal alveolarconsolidation. A few scattered bilateral less than 5 mm pulmonary nodules appears similarto the prior examinations. Up to approximately 6 mm left upper lobe perivascular noncalcified solidnodule without spiculated morphology suggested on (series 4 image 74) as comparedto approximately well-defined 4 mm solid nodule in 2017. Multilevel thoracic spine degenerative disease with disc-osteophytecomplexes and central stenosis. IMPRESSION: Emphysematous disease with indeterminate left upper lobe perivascularnodule (neoplasia to be excluded) by low-dose screening CT analysis when comparedto [id number]. Please see the above report for further details. 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 Health Care Decision (hx) 08/20/2020 AD IBRAHIM DIRECTIVE Health Care Decision (hx) 08/20/2020 AD IBRAHIM DIRECTIVE Health Care Decision (hx) 08/20/2020 AD IBRAHIM DIRECTIVE Health Care Decision (hx) 08/20/2020 AD IBRAHIM DIRECTIVE Health Care Decision (hx) 08/20/2020 AD IBRAHIM DIRECTIVE Health Care Decision (hx) 08/20/2020 AD IBRAHIM DIRECTIVE Health Care Decision (hx) 08/20/2020 AD IBRAHIM DIRECTIVE Health Care Decision (hx) 08/20/2020 AD IBRAHIM DIRECTIVE Health Care Decision (hx) 08/20/2020 AD IBRAHIM DIRECTIVE Health Care Decision (hx) 08/20/2020 AD IBRAHIM DIRECTIVE Health Care Decision (hx) 08/20/2020 AD IBRAHIM DIRECTIVE Health Care Decision (hx) 08/20/2020 AD IBRAHIM DIRECTIVE Health Care Decision (hx) 08/20/2020 AD IBRAHIM DIRECTIVE Health Care Decision (hx) 08/20/2020 AD IBRAHIM DIRECTIVE Health Care Decision (hx) 08/20/2020 AD IBRAHIM DIRECTIVE Health Care Decision (hx) 08/20/2020 AD IBRAHIM DIRECTIVE Health Care Decision (hx) 08/20/2020 AD IBRAHIM DIRECTIVE Health Care Decision (hx) 08/20/2020 AD IBRAHIM DIRECTIVE Health Care Decision (hx) 08/20/2020 AD IBRAHIM DIRECTIVE Health Care Decision (hx) 08/20/2020 AD IBRAHIM DIRECTIVE Health Care Decision (hx) 08/20/2020 AD IBRAHIM DIRECTIVE 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
== END 2025-05-29 11:54 | disposition home or self-care (01) ==
LOC: HO.HSMS 11:12
PROVIDERS: PCP Internal Medicine; Visit Provider Psychiatry & Neurology Neurology
DX: G31.84 Mild cognitive impairment of uncertain or unknown etiology (principal)
CPT/HCPCS: 99204; G2211